=== PATIENT | male | born 1980 | race African-American/Black ===

== ENCOUNTER 2021-04-12 18:56 | Emergency (ER) | payer SELFPAY ==
[~2021-04-12] VITALS: Ht 160 cm; Wt 59.0 kg
[2021-04-12 22:37] VITALS: BP 143/84
[2021-04-12] MEDS ORDERED: IBUPROFEN 800 MG TAB PO ONE (23:45)
== END 2021-04-13 00:59 | disposition home or self-care (01) ==
LOC: ER 18:58
DX: S63.012A Subluxation of distal radioulnar joint of left wrist, initial encounter (principal); X58.XXXA Exposure to other specified factors, initial encounter; Y93.89 Activity, other specified; Y92.89 Other specified places as the place of occurrence of the external cause; Y99.8 Other external cause status
CPT/HCPCS: 73090; 73200